=== PATIENT | female | born 2000 | race Caucasian/White ===

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

== ENCOUNTER 2022-12-08 11:42 | Emergency (ER) | payer MEDICAID ==
[~2022-12-08] VITALS: Ht 160 cm; Wt 102.1 kg
[2022-12-08 12:02] VITALS: BP 172/95; PULSE 102; RESP 20; TEMP 97.8; O2SAT 99
[2022-12-08] MEDS ORDERED: FLONAS NS (12:18)
[2022-12-08] MEDS ORDERED: AMOX875T3 PO (12:18)
[2022-12-08] MEDS ORDERED: IBUP-1842 PO (12:18)
[2022-12-08 12:26] VITALS: BP 144/89; PULSE 99; RESP 20; TEMP 97.8; O2SAT 99
== END 2022-12-08 12:27 | disposition home or self-care (01) ==
LOC: MED 11:42
DX: H66.91 Otitis media, unspecified, right ear (principal); H69.81 Other specified disorders of Eustachian tube, right ear; J45.909 Unspecified asthma, uncomplicated; I10 Essential (primary) hypertension
CPT/HCPCS: 99283

== ENCOUNTER 2023-03-10 09:55 | Emergency (ER) | payer MEDICAID ==
[~2023-03-10] VITALS: Ht 167.6 cm; Wt 72.6 kg
[~2023-03-10 09:55] MED LIST: AMOX875T3 PO; FLONAS NS; IBUP-1842 PO
[2023-03-10 10:11] VITALS: BP 138/92; PULSE 86; RESP 18; TEMP 98; O2SAT 98
[2023-03-10] MEDS ORDERED: AMOX875T3 PO (10:32)
[2023-03-10 10:49] VITALS: BP 138/92; PULSE 98; RESP 18; TEMP 98; O2SAT 100
== END 2023-03-10 10:45 | disposition home or self-care (01) ==
LOC: MED 09:55
DX: H66.91 Otitis media, unspecified, right ear (principal); J45.909 Unspecified asthma, uncomplicated; I10 Essential (primary) hypertension; Z79.899 Other long term (current) drug therapy
CPT/HCPCS: 99282

== ENCOUNTER 2023-07-21 17:45 | Emergency (ER) | payer MEDICAID ==
[~2023-07-21] VITALS: Ht 157.5 cm; Wt 100.0 kg
[2023-07-21 18:01] VITALS: BP 157/107; PULSE 102; RESP 18; TEMP 98.9; O2SAT 99
[2023-07-21] MEDS ORDERED: OFLO10SO16 LEFT EAR (19:32)
[2023-07-21] MEDS ORDERED: AMOX500C25 PO (19:32)
[2023-07-21] MEDS ORDERED: IBUP-2213 PO (19:32)
[2023-07-21 19:39] VITALS: PULSE 102; RESP 18; TEMP 98.9; O2SAT 99
== END 2023-07-21 19:39 | disposition home or self-care (01) ==
LOC: MED 17:45
DX: H66.92 Otitis media, unspecified, left ear (principal); H60.92 Unspecified otitis externa, left ear; R03.0 Elevated blood-pressure reading, without diagnosis of hypertension; J45.909 Unspecified asthma, uncomplicated; I10 Essential (primary) hypertension; Z79.899 Other long term (current) drug therapy; Z79.1 Long term (current) use of non-steroidal anti-inflammatories (NSAID); Z79.2 Long term (current) use of antibiotics
CPT/HCPCS: 99283